=== PATIENT | male | born 1960 | race African-American/Black ===

== ENCOUNTER 2019-04-22 22:50 | Inpatient (IN) | payer BC ==
--- NOTE | 2019-04-22 23:25 | PDOC ---
Attending Attestation - Resident Resident Name: Brannon Hickman - ED Attending Attestation I have performed the following: I have examined & evaluated the patient, The case was reviewed & discussed with the resident, I agree w/resident's findings & plan - HPI HPI: 04/23/19 01:18 Pt had a syncopal episode while grocery shopping. He had never passed out before. He is thin nd works out; though he has not in the past weel. He takes creatine and nitrous oxide for muscle development. Pt has no PMHx and he is healthy otherwise. He drives long distances sometimes, states that he drove to [place] by himself 1 mos ago; prior to that he and his fam drove to [place].. Prior to that he drove to [facility], where they went rafting. Pt is not a smoker. - Physicial Exam PE: 04/23/19 01:23 Agree with resident exam. Pt has normal heart and lungs and neuro exam. Pt is thin and appears dry and weak. Family keeps saying that he has been awake x 21 hrs. - Medical Decision Making 04/23/19 03:10 Patient Name: LAM MCDONALD THIS IS A PRELIMINARY REPORT FROM [facility] DATE OF SERVICE: 2019-04-23 01:40:18 IMAGES: 41 EXAM: DUPLEX VASCULAR US-2 LEGS HISTORY: Rule DVT COMPARISON: None. FINDINGS: There is no DVT in the right or left lower extremity. IMPRESSION: No DVT.
--- NOTE | 2019-04-22 23:30 | PDOC ---
History of Present Illness - General Stated Complaint: PASS OUT Time Seen by Provider: 04/22/19 22:56 History Source: Patient Exam Limitations: No Limitations - History of Present Illness Initial Comments: 04/22/19 23:17 58 yo male no sig pmh presents to the ED after syncopal episode 1 hour ago. Pt states [place], suddenly felt weak and collapsed. Pt family lowered him to the ground, report 30 sec of unconsciousness and woke up weak and sluggish returning back to normal within 5 min. Denies CP, palpitations, SOB, CRUZ prior to or after the episode, denies tongue biting, urinating on himself or hx of seizures. Denies cardiac hx, FHX of cardiac issues, recent travel, calf tenderness, recent illness, changes in vision, N/V/F/C, neck pain. Past History - Past Medical History Allergies/Adverse Reactions: Allergies Allergy/AdvReac Type Severity Reaction Status Date / Time No Known Allergies Allergy Verified 04/22/19 23:32 Home Medications: Ambulatory Orders NK [No Known Home Medication] 04/23/19 Review of Systems - Review of Systems Constitutional: Yes: See HPI HEENTM: Yes: See HPI Respiratory: Yes: See HPI Cardiac (ROS): Yes: See HPI ABD/GI: Yes: See HPI : Yes: See HPI Musculoskeletal: Yes: See HPI Integumentary: Yes: See HPI Neurological: Yes: See HPI *Physical Exam - Physical Exam General Appearance: Yes: Nourished, Appropriately Dressed. No: Apparent Distress HEENT: positive: EOMI, LASHAWN, Normal Voice, Hearing Grossly Normal. negative: Scleral Icterus (R), Scleral Icterus (L) Neck: positive: Supple. negative: Rigid, Carotid bruit, Stridor, Rigidity Respiratory/Chest: positive: Lungs Clear, Normal Breath Sounds. negative: Respiratory Distress, Accessory Muscle Use, Crackles, Rales, Rhonchi, Stridor, Wheezing Cardiovascular: positive: Regular Rhythm, Regular Rate, S1, S2. negative: Edema , JVD, Murmur Vascular Pulses: Dorsalis-Pedis (R): 4+, Doralis-Pedis (L): 4+ Gastrointestinal/Abdominal: positive: Flat, Soft. 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 negative: Facial Droop, Sensory Deficit, Confused, Disoriented ED Treatment Course - LABORATORY CBC & Chemistry Diagram: 04/23/19 01:07 04/22/19 23:48 - RADIOLOGY Radiology Studies Ordered: Category Date Time Status HEAD CT WITHOUT CONTRAST [CT] Stat CT Scan 04/22/19 23:09 Ordered CHEST PA & LAT [RAD] Stat Radiology 04/22/19 23:09 Ordered Medical Decision Making - Medical Decision Making 04/22/19 23:32 58 yo male no sig pmh presents to the ED after syncopal episode 1 hour ago. Pt states he [place], suddenly felt weak and collapsed. Pt family lowered him to the ground, report 30 sec of unconsciousness and woke up weak and sluggish returning back to normal within 5 min. Of note, EMT report BP in the 90s systolic on the scene, given 500 ml bolus and pt reports improvement. Denies CP, palpitations, SOB, CRUZ prior to or after the episode, denies tongue biting, urinating on himself or hx of seizures. Denies cardiac hx, FHX of cardiac issues, recent travel, calf tenderness, recent illness, changes in vision, N/V/F/C, neck pain. DDX INLT: seizure, TIA, stroke, arrythmia, AK, infection, toxic/metabolic cause , vasovagal Labs: CBC, CMP, Cardiac, TSH, mag/phos, EKG, CXR and head CT Pt AOX3, NAD, sitting up in bed without medical complaints will admit for syncopal episode *DC/Admit/Observation/Transfer Diagnosis at time of Disposition: Syncope and collapse - Discharge Dispostion Condition at time of disposition: Stable Decision to Admit order: Yes - Referrals - Patient Instructions - Post Discharge Activity
[2019-04-23] MEDS ORDERED: SODIUM CHLORIDE 0.9% 500 ML INFUS.BAG IV ONE (00:01)
[2019-04-23 00:45] LABS: ALBUMIN 3.6 g/dl (3.4-5.0); BILIRUBIN,TOTAL 0.3 mg/dL (0.2-1); BLOOD UREA NITROGEN 28.2 mg/dL (7-18); CALCIUM 9.1 mg/dL (8.5-10.1); CREATININE 1.7 mg/dL (0.55-1.3); MAGNESIUM 2.1 mg/dL (1.8-2.4); PHOSPHOROUS 4.2 mg/dL (2.5-4.9); POTASSIUM 4.5 mmol/L (3.5-5.1); TOT PROT 6.6 g/dl (6.4-8.2)
[2019-04-23 01:15] LABS: BASO % 0.5 % (0-2.0); EOS % 0.3 % (0-4.5); HEMATOCRIT 38.4 % (35.4-49); HEMOGLOBIN 12.4 GM/dL (11.7-16.9); LYMPH % 9.2 % (8-40); MCH 31.1 pg (25.7-33.7); MCHC 32.4 g/dl (32.0-35.9); MEAN PLT VOLUME 10.6 fl (7.5-11.1); MONO % 4.6 % (3.8-10.2); NEUT % 85.4 % (42.8-82.8); PLATELET COUNT 143 K/MM3 (134-434); RDW 12.3 % (11.9-15.9); WHITE BLOOD COUNT 8.7 K/mm3 (4.0-10.0)
[2019-04-23 01:28] LABS: INR 1.06 (0.83-1.09); PROTHROMBIN TIME (PATIENT) 12.5 SEC (9.7-13.0)
[2019-04-23] MEDS ORDERED: APIXABAN 5 MG TABLET PO ONE (02:44)
[2019-04-23] MEDS: APIXABAN 5 MG TABLET PO SCH ×2 (02:53→11:13)
--- NOTE | 2019-04-23 03:06 | PN ---
Teaching Attending Note Name of Resident: Tamela Basurto ATTENDING PHYSICIAN STATEMENT I saw and evaluated the patient. I reviewed the resident's note and discussed the case with the resident. I agree with the resident's findings and plan as documented. SUBJECTIVE: Patient is a 58 year old man with no significant PMH who presents to the ER after a syncopal episode 1 hour ago. Patient states he was walking [place] the [place] family, suddenly felt weak and collapsed. Patient's family lowered him to the ground, report 30 seconds of unconsciousness and woke up weak and sluggish returning back to normal within 5 min. Denies chest pain, palpitations, SOB, headache prior to or after the episode, denies tongue biting , urinating on himself or history of seizures. Denies FH of cardiac issues, calf tenderness, recent illness, changes in vision, nausea, vomiting, fever, chills or neck pain. He had never passed out before. He works out; though he has not in the past week. He takes creatine, HGHx2 and nitrous oxide for muscle development. He drives long distances sometimes, states that he drove to [place] 1 month ago and prior to that he and his family drove to [place] and to [place]. Denies tobacco use, alcohol or illicit drug use. Occasional marijuana use. FH of prostate and ovarian cancer. OBJECTIVE: Alert and not orthostatic Vital Signs Period Temp Pulse Resp BP Sys/Field Pulse Ox Last 24 Hr 98.5 F 66-78 20 108-124/64-77 98 HEENT: No Jaundice, eye redness or discharge, PERRLA, EOMI. Normocephalic, atraumatic. External ears are normal and hearing is grossly intact. No nasal discharge. Neck: Supple, nontender. No palpable adenopathy or thyromegaly. No JVD Chest: Good effort. Clear to auscultation and percussion. Heart: Regular. No S3, rub or murmur Abdomen: Not distended, soft, nontender and no HSM. No rebound or guarding. Normal bowel sounds. Ext: Peripheral pulses intact. No leg edema. Skin: Warm and dry. No petechiae, rash or ecchymosis. Neuro: Alert. Oriented x3. CN 2-12 grossly intact. Sensation grossly intact in all four extremities and DTR are symmetric. Psych: Appropriate mood and affect. Good insight. Current Medications Generic Name Dose Route Start Last Admin Trade Name Hayley PRN Reason Stop Dose Admin Apixaban 10 mg 04/23/19 02:55 04/23/19 02:53 Eliquis - PO 10 mg BID ZACHERY Administration Home Medications Medication Instructions Recorded NK [No Known Home Medication] 04/23/19 Abnormal Lab Results 04/22/19 04/22/19 04/23/19 23:48 23:48 01:07 Neutrophils % D-Dimer 723 H BUN 28.2 H Creatinine 1.7 H Creatine Kinase 336 H CK-MB (CK-2) 4.2 H 04/23/19 01:07 Neutrophils % 85.4 H D-Dimer BUN Creatinine Creatine Kinase CK-MB (CK-2) ASSESSMENT AND PLAN: 1. Syncope - Cause unknown. Says he took creatine, HGHx2 and nitrous oxide then worked out before going [place] [employer] where he passed out. EKG showed sinus bradycardia with no significant ST-T wave changes. No acute abnormality on head CT scan and doppler scan did not show leg DVT. Urinalysis, urine toxicology and CXR are pending. Started on Eliquis empirically for DVT by the ER staff - pending V/Q scan. Pulmonary consult. Will get brain MRI/MRA, carotid doppler, ECHO and monitor on telemetry. Consult neurology. 2. EYAD - Elevated CPK suggest rhabdomyolysis. Azotemia may also be due to muscle building "supplements". Will get urinalysis, kidney sonogram, hydrate with IV NS and monitor urine output. Consult nephrology and avoid nephrotoxic agents such as NSAIDS, aminoglycosides, contrast dyes and certain Alternative medicine products. 3. DVT prophylaxis -On Eliquis. 4. Advance directives - Full code
--- NOTE | 2019-04-23 05:00 | HP ---
CHIEF COMPLAINT: Syncope PCP: HISTORY OF PRESENT ILLNESS: 58 y/o M with no PMH came into the ED after a syncopal episode. [place] the [place] his [place] when he begun to feel lightheaded for about a minute.Immediately after pt fell down with loss of consciousness. Pt says he was drowsy after the episode for a few seconds then eventually regained consciousness and awareness of where he was and what happened. Pt said around the same time of his syncope, he felt sweaty, cold and clammy. Pt endorsed vomiting 2 teaspoons of NBNB fluids immediately after.Pt denies hitting his head with fall or seeing floaters prior to episode. Pt had no recent trauma. Pt admits to taking workout supplements such as creatine, Nitric oxide , HGHX2 ( growth hormone). ER course was notable for: (1)CBC, CMP, Cardiac, TSH, mag/phos (2)EKG showed sinus bradycardia with an otherwise normal EKG (3)CXR and head CT with pending results Recent Travel: Pt drove to [place] one month ago, and to [place] with his family prior to that PAST MEDICAL HISTORY: None PAST SURGICAL HISTORY: None Social History: Smoking:no Alcohol:social drinker Drugs: Marijuana occasionally Family History: Allergies hay fever (Verified 04/22/19 23:32) HOME MEDICATIONS: Home Medications Medication Instructions Recorded NK [No Known Home Medication] 04/23/19 REVIEW OF SYSTEMS CONSTITUTIONAL: Absent: fever, chills, diaphoresis, generalized weakness, malaise, loss of appetite, weight change HEENT: nasal congestiom currently Absent: rhinorrhea, throat pain, throat swelling, difficulty swallowing, mouth swelling, ear pain, eye pain, visual changes CARDIOVASCULAR: syncope Absent: chest pain, palpitations, irregular heart rate, lightheadedness, peripheral edema RESPIRATORY: Absent: cough, shortness of breath, dyspnea with exertion, orthopnea, wheezing, stridor, hemoptysis GASTROINTESTINAL: Absent: abdominal pain, abdominal distension, nausea, vomiting, diarrhea, constipation, melena, hematochezia GENITOURINARY: Absent: dysuria, frequency, urgency, hesitancy, hematuria, flank pain, genital pain MUSCULOSKELETAL: Absent: myalgia, arthralgia, joint swelling, back pain, neck pain SKIN: Absent: rash, itching, pallor HEMATOLOGIC/IMMUNOLOGIC: Absent: easy bleeding, easy bruising, lymphadenopathy, frequent infections ENDOCRINE: Absent: unexplained weight gain, unexplained weight loss, heat intolerance, cold intolerance NEUROLOGIC: Absent: headache, focal weakness or paresthesias, dizziness, unsteady gait, seizure, mental status changes, bladder or bowel incontinence PSYCHIATRIC: Absent: anxiety, depression, suicidal or homicidal ideation, hallucinations. PHYSICAL EXAMINATION Vital Signs - 24 hr 04/22/19 04/23/19 04/23/19 23:27 01:31 02:52 Temperature 98.5 F Pulse Rate 66 Pulse Rate [ 78 Right side Sitting] Pulse Rate [ 77 Right side Supine] Pulse Rate [ 75 Standing] Respiratory 20 Rate Blood Pressure 108/64 Blood Pressure 118/77 [Right side Sitting] Blood Pressure 118/73 [Right side Supine] Blood Pressure 124/73 [Standing] O2 Sat by Pulse 98 98 Oximetry (%) 04/23/19 04:00 Temperature Pulse Rate Pulse Rate [ 75 Right side Sitting] Pulse Rate [ 72 Right side Supine] Pulse Rate [ 80 Standing] Respiratory Rate Blood Pressure Blood Pressure 106/57 L [Right side Sitting] Blood Pressure 112/72 [Right side Supine] Blood Pressure 137/89 [Standing] O2 Sat by Pulse Oximetry (%) GENERAL: Awake, alert, and fully oriented, in no acute distress. HEAD: Normal with no signs of trauma. EYES: Pupils equal, round and reactive to light, extraocular movements intact, sclera anicteric, conjunctiva clear. No lid lag. EARS, NOSE, THROAT: oropharynx clear without exudates. NECK: Normal range of motion, supple without lymphadenopathy, JVD, or masses. LUNGS: Breath sounds equal, clear to auscultation bilaterally. No wheezes, and no crackles. No accessory muscle use. HEART: Regular rate and rhythm, normal S1 and S2 without murmur, rub or gallop. ABDOMEN: Soft, nontender, not distended, normoactive bowel sounds, no guarding, no rebound, no masses. No hepatomegaly or splenomegaly. MUSCULOSKELETAL: Normal range of motion at all joints. No bony deformities or tenderness. No CVA tenderness. UPPER EXTREMITIES: 2+ pulses, warm, well-perfused. No cyanosis. No clubbing. No peripheral edema. LOWER EXTREMITIES: 2+ pulses, warm, well-perfused. No calf tenderness. No peripheral edema. NEUROLOGICAL: Cranial nerves II-XII intact. Normal speech. Normal gait.strength 5/5 with intact sensory SKIN: Warm, dry, normal turgor, no rashes or lesions noted, normal capillary refill. Laboratory Results - last 24 hr 04/22/19 04/22/19 04/22/19 23:48 23:48 23:48 WBC Cancelled Corrected WBC (auto) Cancelled RBC Cancelled Hgb Cancelled Hct Cancelled MCV Cancelled MCH Cancelled MCHC Cancelled RDW Cancelled Plt Count Cancelled MPV Cancelled Absolute Neuts (auto) Cancelled Neutrophils % Cancelled Lymphocytes % Cancelled Monocytes % Cancelled Eosinophils % Cancelled Basophils % Cancelled Nucleated RBC % Cancelled Platelet Estimate Cancelled Platelet Comment Cancelled PT with INR INR D-Dimer Sodium 143 Potassium 4.5 Chloride 107 Carbon Dioxide 27 Anion Gap 9 BUN 28.2 H Creatinine 1.7 H Est GFR (CKD-EPI)AfAm 50.05 Est GFR (CKD-EPI)NonAf 43.18 Random Glucose 103 Calcium 9.1 Phosphorus 4.2 Magnesium 2.1 Total Bilirubin 0.3 AST 27 ALT 23 Alkaline Phosphatase 67 Creatine Kinase 336 H Creatine Kinase Index 1.2 CK-MB (CK-2) 4.2 H Troponin I < 0.02 Total Protein 6.6 Albumin 3.6 TSH 2.76 04/23/19 04/23/19 04/23/19 01:07 01:07 01:07 WBC 8.7 Corrected WBC (auto) RBC 4.00 Hgb 12.4 Hct 38.4 MCV 96.0 MCH 31.1 MCHC 32.4 RDW 12.3 Plt Count 143 MPV 10.6 Absolute Neuts (auto) 7.4 Neutrophils % 85.4 H Lymphocytes % 9.2 Monocytes % 4.6 Eosinophils % 0.3 Basophils % 0.5 Nucleated RBC % 0 Platelet Estimate Platelet Comment PT with INR 12.50 INR 1.06 D-Dimer 723 H Sodium Potassium Chloride Carbon Dioxide Anion Gap BUN Creatinine Est GFR (CKD-EPI)AfAm Est GFR (CKD-EPI)NonAf Random Glucose Calcium Phosphorus Magnesium Total Bilirubin AST ALT Alkaline Phosphatase Creatine Kinase Creatine Kinase Index CK-MB (CK-2) Troponin I Total Protein Albumin TSH ASSESSMENT/PLAN: 58 y/o with no PMH admitted for syncope Syncope orthostatics 112/72 74 supine, 106/57 74 sitting, 137/[address] scan read pending Chest Xray read pending Brain MRI/MRA carotid US ordered Echo ordered neuro checks Q2h trend trops. <0.02 04/22/19 Urine toxicology since patient takes alot of supplements Neuro consult TSH 2.76 PT/INR 12.5/1.06 EYAD Cr 1.7 monitor Elevated D-dimers d-dimers (723) ordered in ED 2/2 long trips 1 month ago Pulmonology consult V/Q scan to r/o PE on eliquis 10 mg PO BID until V/Q scan completed DVT No AC Problem List - Problem (1) Syncope and collapse Code(s): R55 - SYNCOPE AND COLLAPSE Visit type - Emergency Visit Emergency Visit: Yes ED Registration Date: 04/23/19 Care time: The patient presented to the Emergency Department on the above date and was hospitalized for further evaluation of their emergent condition. - New Patient This patient is new to me today: Yes Date on this admission: 04/23/19 - Critical Care Critical Care patient: No ATTENDING PHYSICIAN STATEMENT I saw and evaluated the patient. I reviewed the resident's note and discussed the case with the resident. I agree with the resident's findings and plan as documented. SUBJECTIVE: OBJECTIVE: ASSESSMENT AND PLAN:
[2019-04-23 07:14] VITALS: BMI 22.0
--- NOTE | 2019-04-23 09:54 | PN ---
Physical Exam: SUBJECTIVE: Patient seen and examined OBJECTIVE: Vital Signs Period Temp Pulse Resp BP Sys/Field Pulse Ox Last 24 Hr 98.5 F-98.6 F 66-90 20-20 106-137/57-89 98-100 GENERAL: The patient is awake, alert, and fully oriented, in no acute distress. HEAD: Normal with no signs of trauma. EYES: PERRL, extraocular movements intact, sclera anicteric, conjunctiva clear. No ptosis. ENT: Ears normal, nares patent, oropharynx clear without exudates, moist mucous membranes. NECK: Trachea midline, full range of motion, supple. LUNGS: Breath sounds equal, clear to auscultation bilaterally, no wheezes, no crackles, no accessory muscle use. HEART: Regular rate and rhythm, S1, S2 without murmur, rub or gallop. ABDOMEN: Soft, nontender, nondistended, normoactive bowel sounds, no guarding, no rebound, no hepatosplenomegaly, no masses. EXTREMITIES: 2+ pulses, warm, well-perfused, no edema. NEUROLOGICAL: Cranial nerves II through XII grossly intact. Normal speech, gait not observed. PSYCH: Normal mood, normal affect. SKIN: Warm, dry, normal turgor, no rashes or lesions noted Laboratory Results - last 24 hr 04/22/19 04/22/19 04/22/19 23:48 23:48 23:48 WBC Cancelled Corrected WBC (auto) Cancelled RBC Cancelled Hgb Cancelled Hct Cancelled MCV Cancelled MCH Cancelled MCHC Cancelled RDW Cancelled Plt Count Cancelled MPV Cancelled Absolute Neuts (auto) Cancelled Neutrophils % Cancelled Lymphocytes % Cancelled Monocytes % Cancelled Eosinophils % Cancelled Basophils % Cancelled Nucleated RBC % Cancelled Platelet Estimate Cancelled Platelet Comment Cancelled PT with INR INR D-Dimer Sodium 143 Potassium 4.5 Chloride 107 Carbon Dioxide 27 Anion Gap 9 BUN 28.2 H Creatinine 1.7 H Est GFR (CKD-EPI)AfAm 50.05 Est GFR (CKD-EPI)NonAf 43.18 Random Glucose 103 Calcium 9.1 Phosphorus 4.2 Magnesium 2.1 Total Bilirubin 0.3 AST 27 ALT 23 Alkaline Phosphatase 67 Creatine Kinase 336 H Creatine Kinase Index 1.2 CK-MB (CK-2) 4.2 H Troponin I < 0.02 Total Protein 6.6 Albumin 3.6 TSH 2.76 04/23/19 04/23/19 04/23/19 01:07 01:07 01:07 WBC 8.7 Corrected WBC (auto) RBC 4.00 Hgb 12.4 Hct 38.4 MCV 96.0 MCH 31.1 MCHC 32.4 RDW 12.3 Plt Count 143 MPV 10.6 Absolute Neuts (auto) 7.4 Neutrophils % 85.4 H Lymphocytes % 9.2 Monocytes % 4.6 Eosinophils % 0.3 Basophils % 0.5 Nucleated RBC % 0 Platelet Estimate Platelet Comment PT with INR 12.50 INR 1.06 D-Dimer 723 H Sodium Potassium Chloride Carbon Dioxide Anion Gap BUN Creatinine Est GFR (CKD-EPI)AfAm Est GFR (CKD-EPI)NonAf Random Glucose Calcium Phosphorus Magnesium Total Bilirubin AST ALT Alkaline Phosphatase Creatine Kinase Creatine Kinase Index CK-MB (CK-2) Troponin I Total Protein Albumin TSH Active Medications Generic Name Dose Route Start Last Admin Trade Name Freq PRN Reason Stop Dose Admin Apixaban 10 mg 04/23/19 02:55 04/23/19 02:53 Eliquis - PO 10 mg BID ZACHERY Administration ASSESSMENT/PLAN: Visit type - Emergency Visit Emergency Visit: Yes ED Registration Date: 04/23/19 Care time: The patient presented to the Emergency Department on the above date and was hospitalized for further evaluation of their emergent condition. - New Patient This patient is new to me today: Yes Date on this admission: 04/23/19 - Critical Care Critical Care patient: No - Discharge Referral Referred to [facility] Med [facility] No
[2019-04-23] MEDS ORDERED: APIXABAN 5 MG TABLET PO SCH (10:00)
[2019-04-23 10:15] LABS: COCAINE, UR NEGATIVE ng/ml (CUTOFF=300); METHADONE, UR NEGATIVE ng/ml (CUTOFF=300); OPIATES, URI NEGATIVE ng/ml (CUTOFF=300); PHENCYCLIDINE,URINE NEGATIVE ng/ml (CUTOFF=25); URINE AMPHETAMINES NEGATIVE ng/ml (CUTOFF=500); URINE BARBITURATES NEGATIVE ng/ml (CUTOFF=200); URINE BENZODIAZEPINES NEGATIVE ng/ml (CUTOFF=200)
[2019-04-23] MEDS ORDERED: SODIUM CHLORIDE 1,000 ML IV SCH (10:15)
--- NOTE | 2019-04-23 10:21 | CONSULT ---
Consult - text type - Consultation Consultation Note: Renal Coverage for Dr. Johnson Renal consult for EYAD This is a 58 year old gentleman with no signifincat medical history who presented s/p syncope and noted to have Cr of 1.7. Pt reports that he was working up and then had had LOC. Denies any chest pain or palpitions. Reports taking creatine and nitric oxide supplaments at home. Denies any NSAID use. No piror history of CKD or kidney stones. No recent contrast exposure. Denies any urinary retention. PMhx: as above Allergies: NKDA Family hx: NC Social Hx: No T/A/D ROS: as per HPI, all other pertinent ros negative Home Medications Medication Instructions Recorded NK [No Known Home Medication] 04/23/19 Vital Signs Temperature 98.6 F 04/23/19 04:41 Pulse Rate 90 04/23/19 04:41 Respiratory Rate 20 04/23/19 04:41 Blood Pressure 118/76 04/23/19 04:41 O2 Sat by Pulse Oximetry (%) 100 04/23/19 04:41 Intake & Output 04/20/19 04/21/19 04/22/19 04/23/19 23:59 23:59 23:59 23:59 Weight 73.482 kg 73.663 kg NAD awake and alert neck supple, no JVD RRR, no M/R CTA, no rales or wheeze soft NT/ND no LE edema Current Medications Apixaban (Eliquis -) 10 mg PO BID [facility] Last Admin: 04/23/19 02:53 Dose: 10 mg Sodium Chloride (Normal Saline -) 1,000 mls @ 100 mls/hr IV ASDIR [facility] Stop: 04/23/19 22:14 58 year old gentleman with no signifincat medical history who presented s/p syncope and noted to have Cr of 1.7. 1. Acute kidney injury secondary to volume depletion vs. creatine supplement induced nephrotoxicity vs. rhabdomyolysis vs. false elevation in Cr levels due to supplementation. 2. Syncope Check Renal US, FeNa, UPCR, UA, urine Eos Give trial of IVF x 12 hours Trend BMP daily Advised avoidance of further supplantation no acute need for dialysis Thank you Will follow Emmanuel Su DO
[2019-04-23 10:23] LABS: BASO % 0.7 % (0-2.0); EOS % 1.3 % (0-4.5); HEMATOCRIT 37.6 % (35.4-49); HEMOGLOBIN 12.2 GM/dL (11.7-16.9); LYMPH % 25.3 % (8-40); MCH 30.8 pg (25.7-33.7); MCHC 32.4 g/dl (32.0-35.9); MEAN CELL VOLUME 95.2 fl (80-96); MONO % 7.4 % (3.8-10.2); NEUT % 65.3 % (42.8-82.8); PLATELET COUNT 149 K/MM3 (134-434); RBC 3.95 M/mm3 (4.00-5.60); RDW 12.8 % (11.9-15.9); WHITE BLOOD COUNT 5.4 K/mm3 (4.0-10.0)
[2019-04-23 11:02] LABS: ALBUMIN 3.3 g/dl (3.4-5.0); ALK PHOS 63 U/L (45-117); ANION GAP 4 MMOL/L (8-16); BLOOD UREA NITROGEN 21.8 mg/dL (7-18); CHLORIDE 107 mmol/L (98-107); CHOLESTEROL 104 mg/dL (50-200); CO2 29 mmol/L (21-32); CREATININE 1.4 mg/dL (0.55-1.3); GLUCOSE,RANDOM 90 mg/dL (74-106); HDL CHOLESTEROL 45 mg/dL (40-60); MAGNESIUM 2.1 mg/dL (1.8-2.4); SGOT/AST 21 U/L (15-37); SGPT/ALT 21 U/L (13-61); SODIUM 140 mmol/L (136-145); TRIGLYCERIDES 84 mg/dL (0-150)
[2019-04-23 11:03] LABS: BILIRUBIN,TOTAL 0.4 mg/dL (0.2-1)
[2019-04-23 12:06] LABS: PH,URINE 5.5 (5.0-8.0); URINE APPEARANCE CLEAR; URINE BILIRUBIN NEGATIVE (NEGATIVE); URINE COLOR YELLOW; URINE GLUCOSE (UA) NEGATIVE (NEGATIVE); URINE KETONE NEGATIVE (NEGATIVE); URINE LEUK ESTERASE NEGATIVE (NEGATIVE); URINE NITRITE NEGATIVE (NEGATIVE); URINE PROTEIN NEGATIVE (NEGATIVE); URINE UROBILINOGEN 0.2 mg/dL (0.2-1.0)
[2019-04-23 12:19] LABS: RATIO URIN PROTEIN/URIN CREAT 0.04 MG/DL
--- NOTE | 2019-04-23 12:35 | CONSULT ---
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 The lasf few days he has eaten rather little as he had "no food in the house." Yesterday was up at 5:30, had his workout at lunchtime and went food shopping around 8:30 PM with his girlfriend and sister. In the market he felt unwell, developed a cold, clammy feeling and had witnessed LOC without seizure activity. Woke up in a cold sweat but was rpidly oriented. CT of head (reviewed): Normal Carotid duplex doppler: Normal Labs sig for mildly elevated ED=591 IU and Cr=1.7 mg% TRISTON: Normal cor reg 70's NEURO: MS/Speech: Normal CN II-XII: Normal Motor: No drift or tremor. Normal strength, bulk, tone and reflexes. Toes downgoing Coord: Normal Sensation: No FTN dystaxia Gait: Normal IMP: Normal neurological exam Syncope. R/O arrhythmia SUGGST: Check orthostatic BP Telemetry x 24 hrs then stable for Discharge if cleared by cardiology. Improve hydration and nutrition D/C supplements including Nitrous oxide which acts as a vasodilator and can predispose to syncope. F/U to PMD to repeat CK and Cr/BUN Thank you very much, Anival Sesay MD
--- NOTE | 2019-04-23 13:54 | CON.PULM ---
Consult Consult Specialty:: PULM/CCM Referred by:: ALICIA Reason for Consultation:: (+) Ddimer - History of Present Illness Chief Complaint: Syncope History of Present Illness: 58 M, no past medical history. No asthma. No smoking. Admitted via the ER due to syncope. Apparently takes creatine workout supplements and N2O. Poor oral intake for the past few days. S/P presumed syncopal event. Ddimer was sent and was noted to be (+). Patient has no personal or family history of VTE. He does not have risk factors for VTE. - History Source History Provided By: Patient Limitations to Obtaining History: No Limitations - Past Medical History Pulmonary: No: Asthma, Bronchitis, Cancer, COPD, O2 Dependent, Pneumonia, Previously Intubated, Pulmonary Embolus, Pulmonary Fibrosis, Sleep Apnea - Alcohol/Substance Use Hx Alcohol Use: No - Smoking History Smoking history: Never smoked Have you smoked in the past 12 months: No Home Medications - Allergies Allergies/Adverse Reactions: Allergies Allergy/AdvReac Type Severity Reaction Status Date / Time No Known Allergies Allergy Verified 04/22/19 23:32 - Home Medications Home Medications: Ambulatory Orders NK [No Known Home Medication] 04/23/19 Review of Systems - Review of Systems Constitutional: reports: Lethargy, Malaise. denies: Chills, Fever, Night Sweats Eyes: reports: No Symptoms HENT: reports: No Symptoms Neck: reports: No Symptoms Cardiovascular: reports: No Symptoms. denies: Chest Pain, Edema, Palpitations, Shortness of Breath Respiratory: reports: No Symptoms. denies: Cough, Exercise Intolerance, Hemoptysis, Orthopnea, PND, Snoring, SOB, SOB on Exertion, Wheezing Gastrointestinal: reports: No Symptoms Genitourinary: reports: No Symptoms Breasts: reports: No Symptoms Reported Musculoskeletal: reports: No Symptoms Integumentary: reports: No Symptoms Neurological: reports: Syncope. denies: Change in Speech, Confusion, Numbness, Parasthesia, Unsteady Gait Endocrine: reports: No Symptoms Hematology/Lymphatic: reports: No Symptoms Psychiatric: reports: No Symptoms Physical Exam Vital Sings: Vital Signs Temperature 99 F 04/23/19 08:26 Pulse Rate 73 04/23/19 08:26 Respiratory Rate 20 04/23/19 09:00 Blood Pressure 119/73 04/23/19 08:26 O2 Sat by Pulse Oximetry (%) 97 09/14/19 09:00 Constitutional: Yes: No Distress, Calm Eyes: Yes: Conjunctiva Clear, EOM Intact HENT: Yes: Atraumatic, Normocephalic Neck: Yes: Supple, Trachea Midline Cardiovascular: Yes: Regular Rate and Rhythm Respiratory: Yes: CTA Bilaterally. No: Accessory Muscle Use, Cough, Rales, Rhonchi, SOB, SOB on Exertion, Stridor, Tachypnea, Wheezes ...Inspection: Yes: WNL ...Clubbing: No Gastrointestinal: Yes: Normal Bowel Sounds, Soft Renal/: Yes: WNL Musculoskeletal: Yes: WNL Extremities: Yes: WNL Edema: No Peripheral Pulses WNL: Yes Integumentary: Yes: WNL Neurological: Yes: WNL, Alert, Oriented ...Motor Strength: WNL Psychiatric: Yes: WNL, Alert, Oriented Labs: CBC, BMP 04/23/19 09:00 04/23/19 09:58 Imaging - Results Chest X-ray: Report Reviewed, Image Reviewed Problem List - Problems (1) Elevated d-dimer Code(s): R79.89 - OTHER SPECIFIED ABNORMAL FINDINGS OF BLOOD CHEMISTRY (2) Syncope and collapse Code(s): R55 - SYNCOPE AND COLLAPSE Assessment/Plan Spurious elevation of DDimer related to clinical condition. Wells Score is 0. Patient is saturating 100% on RA and HR is the 60'2 to 70's. No evidence of VTE. No smoking counseled. Syncope workup ongoing. No Pulmonary contraindication for DC Thank you. Dr Guo
--- NOTE | 2019-04-23 15:01 | EKG ---
Test Reason : Blood Pressure : / mmHG Vent. Rate : 059 BPM Atrial Rate : 059 BPM P-R Int : 138 ms QRS Dur : 080 ms QT Int : 394 ms P-R-T Axes : 065 062 053 degrees QTc Int : 390 ms SINUS BRADYCARDIA OTHERWISE NORMAL ECG NO PREVIOUS ECGS AVAILABLE Confirmed by MD NAPOLEON, DEEPTHI ([id number]) on 04/23/2019 3:00:37 PM Referred By: Confirmed By:DEEPTHI BENDER MD
[2019-04-23 17:28] VITALS: BP 115/55; PULSE 75; TEMP 98.4
--- NOTE | 2019-04-24 16:44 | DS ---
Physical Exam: CHIEF COMPLAINT: Syncope HISTORY OF PRESENT ILLNESS: 58 y/o M with no PMH came into the ED after a syncopal episode. [place] when he begun to feel lightheaded for about a minute.Immediately after pt fell down with loss of consciousness. Pt says he was drowsy after the episode for a few seconds then eventually regained consciousness and awareness of where he was and what happened. Pt said around the same time of his syncope, he felt sweaty, cold and clammy. Pt endorsed vomiting 2 teaspoons of NBNB fluids immediately after.Pt denies hitting his head with fall or seeing floaters prior to episode. Pt had no recent trauma. Pt admits to taking workout supplements such as creatine, Nitric oxide , HGHX2 ( growth hormone). ER course was notable for: (1)CBC, CMP, Cardiac, TSH, mag/phos (2)EKG showed sinus bradycardia with an otherwise normal EKG (3)CXR and head CT with pending results SUBJECTIVE: Patient seen and examined - Review of Systems Constitutional: reports: Lethargy, Malaise. denies: Chills, Fever, Night Sweats Eyes: reports: No Symptoms HENT: reports: No Symptoms Neck: reports: No Symptoms Cardiovascular: reports: No Symptoms. denies: Chest Pain, Edema, Palpitations, Shortness of Breath Respiratory: reports: No Symptoms. denies: Cough, Exercise Intolerance, Hemoptysis, Orthopnea, PND, Snoring, SOB, SOB on Exertion, Wheezing Gastrointestinal: reports: No Symptoms Genitourinary: reports: No Symptoms Breasts: reports: No Symptoms Reported Musculoskeletal: reports: No Symptoms Integumentary: reports: No Symptoms Neurological: reports: Syncope. denies: Change in Speech, Confusion, Numbness, Parasthesia, Unsteady Gait Endocrine: reports: No Symptoms Hematology/Lymphatic: reports: No Symptoms Psychiatric: reports: No Symptoms Physical Exam Vital Sings: Vital Signs Temperature 99 F 04/23/19 08:26 Pulse Rate 73 04/23/19 08:26 Respiratory Rate 20 04/23/19 09:00 Blood Pressure 119/73 04/23/19 08:26 O2 Sat by Pulse Oximetry (%) 97 04/23/19 09:00 Constitutional: Yes: No Distress, Calm Eyes: Yes: Conjunctiva Clear, EOM Intact HENT: Yes: Atraumatic, Normocephalic Neck: Yes: Supple, Trachea Midline Cardiovascular: Yes: Regular Rate and Rhythm Respiratory: Yes: CTA Bilaterally. No: Accessory Muscle Use, Cough, Rales, Rhonchi, SOB, SOB on Exertion, Stridor, Tachypnea, Wheezes ...Inspection: Yes: WNL ...Clubbing: No Gastrointestinal: Yes: Normal Bowel Sounds, Soft Renal/: Yes: WNL Musculoskeletal: Yes: WNL Extremities: Yes: WNL Edema: No Peripheral Pulses WNL: Yes Integumentary: Yes: WNL Neurological: Yes: WNL, Alert, Oriented ...Motor Strength: WNL Psychiatric: Yes: WNL, Alert, Oriented Labs: Imaging: Brain MRA: Impression: No large vessel stenosis or occlusion is identified. Chest PA: Impression: Motion artifact. No acute chest pathology. VT w/o contrast: Cranial CT without contrast Clinical information: syncopal episode Negative exam. No discrete noncontrast CT pathology is identified. Follow-up imaging as clinically indicated. Duplex vascular US-Impression: No DVT is identified involving either leg. Please see above. US Renal-Impression: The right kidney appears borderline in size measuring approximately 8.4 cm in length. The remainder of the exam appears unremarkable. HOSPITAL COURSE: Date of Admission:04/23/19 Syncope orthostatics 112/72 74 supine, 106/57 74 sitting, 137/[address] scan read pending Chest Xray read Brain MRI/MRA carotid US ordered Echo ordered neuro checks Q2h trend trops. <0.02 04/22/19 Urine toxicology since patient takes alot of supplements-positive for Marijuana Neuro consult TSH 2.76 PT/INR 12.5/1.06 EYAD Cr 1.7 down to 1.4 Elevated D-dimers d-dimers (723) ordered in ED 2/2 long trips 1 month ago Pulmonology on eliquis 10 mg PO BID will D/C for discharge Date of Discharge: 04/24/19 Minutes to complete discharge: 35 Discharge Summary Reason For Visit: SYNCOPE AND COLLAPSE Condition: Good - Instructions Diet, Activity, Other Instructions: Resume activity as tolerated. Follow up with Primary Care Physician for follow up labs next week. Per the Dialysis Technician, Dr. Su advises to avoid further supplementation. Disposition: HOME - Home Medications Comprehensive Discharge Medication List: Ambulatory Orders NK [No Known Home Medication] 04/23/19 This patient is new to me today: Yes Date on this admission: 04/24/19 Emergency Visit: Yes ED Registration Date: 04/23/19 Care time: The patient presented to the Emergency Department on the above date and was hospitalized for further evaluation of their emergent condition. Critical Care patient: No - Discharge Referral Referred to [facility] Med P.C.: No
== END 2019-04-23 18:06 | disposition home or self-care (01) | DRG 312 ==
LOC: JER 22:50 → JERBED 04-23 03:07 → OBSVTOIN 04-23 04:26 → J4W 04-23 06:17
PROVIDERS: ADMIT Internal Medicine; ATTEND Nurse Practitioner Acute Care
DX: R55 Syncope and collapse (principal); N17.9 Acute kidney failure, unspecified; E86.9 Volume depletion, unspecified
CPT/HCPCS: 36415; 70450-TC; 70544-TC; 70551-TC; 71045-TC-FY; 76775-TC; 80053; 80061; 80307; 81003; 82436; 82550; 82553; 82565; 82570; 83721; 83735; 84100; 84133; 84156; 84300; 84443; 84484; 85025; 85379; 85610; 87205; 93005; 93010; 93880-TC; 93970-TC; 99284-25; G0378; J7030